=== PATIENT | female | born 1950 | race Caucasian/White ===

== ENCOUNTER 2018-12-22 11:50 | Emergency (ER) | payer OTHER, MEDICAID ==
[~2018-12-22] VITALS: Ht 154.9 cm; Wt 72.6 kg
[2018-12-22 14:16] VITALS: BP 123/68
== END 2018-12-22 14:16 | disposition home or self-care (01) ==
LOC: ED 11:50
DX: S00.11XA Contusion of right eyelid and periocular area, initial encounter (principal); S09.8XXA Other specified injuries of head, initial encounter; I10 Essential (primary) hypertension; E11.9 Type 2 diabetes mellitus without complications; Z95.1 Presence of aortocoronary bypass graft; W18.40XA Slipping, tripping and stumbling without falling, unspecified, initial encounter; Y93.89 Activity, other specified; Y92.89 Other specified places as the place of occurrence of the external cause; Y99.8 Other external cause status
CPT/HCPCS: 82962